=== PATIENT | female | born 1975 | race Caucasian/White ===

== ENCOUNTER 2016-10-15 13:50 | Emergency (ER) | payer SELFPAY ==
[~2016-10-15] VITALS: Ht 157.5 cm; Wt 90.7 kg
[~2016-10-15 13:50] MED LIST: AZIT250T PO
[2016-10-15] MEDS ORDERED: IV NORMAL SALINE 1000ML BAG 1,000 ML IV ONE (14:45)
[2016-10-15 14:51] LABS: BILIRUBIN,URINE NEGATIVE (NEG); GLUCOSE,URINE 500 mg/dL (NEG); NITRITE,URINE NEGATIVE (NEG); PH,URINE 5.5; PROTEIN,URINE >=300 mg/dL (NEG-TRACE); UROBILINOGEN,URINE 0.2 mg/dL (0.2 mg/dL)
[2016-10-15 14:56] LABS: BARBITURATES NEG (NEG); BENZODIAZEPINES NEG (NEG); CANNABINOIDS NEG (NEG); COCAINE NEG (NEG); ETHANOL, URINE NEG (NEG); METHADONE NEG (NEG); OPIATES NEG (NEG); PHENCYCLIDINE NEG (NEG)
[2016-10-15 15:02] LABS: BACTERIA,URINE FEW /HPF (0-FEW); RBC,URINE 0 /HPF (0-2); SQUAMOUS EPITHELIAL CELL,UR MOD /LPF
[2016-10-15 15:04] LABS: BASO # 0.1 x10^3/uL (0.0-0.2); BASO % 1 % (0-3); EOS % 5 % (0-3); HEMATOCRIT 40.7 % (36.0-47.0); HEMOGLOBIN 13.3 g/dL (12.0-15.5); LYMPH # 1.7 x10^3/uL (1.0-4.8); LYMPH % 15 % (24-48); MEAN CORPUSCULAR HEMOGLOBIN 28 pg (25-35); MEAN CORPUSCULAR HGB CONC 33 g/dL (31-37); MEAN CORPUSCULAR VOLUME 84 fL (79-100); MONO % 5 % (0-9); NEUT % 75 % (31-73); PLATELET COUNT 184 x10^3/uL (140-400); RED BLOOD COUNT 4.86 x10^6/uL (3.50-5.40); RED CELL DISTRIBUTION WIDTH 14.4 % (11.5-14.5); WHITE BLOOD COUNT 11.5 x10^3/uL (4.0-11.0)
[2016-10-15 15:16] LABS: CALCIUM 8.6 mg/dL (8.5-10.1); CREATININE 1.5 mg/dL (0.6-1.0); GFR 38.1; POTASSIUM 3.5 mmol/L (3.5-5.1)
[2016-10-15 15:21] LABS: ALBUMIN 3.1 g/dL (3.4-5.0); ALBUMIN/GLOBULIN RATIO 0.8 (1.0-1.7); TOTAL BILIRUBIN 0.3 mg/dL (0.2-1.0); TOTAL PROTEIN 6.9 g/dL (6.4-8.2)
--- NOTE | 2016-10-15 15:49 | EKG ---
[facility] [address] [place] [address] Test Date: 2016-10-15 Test Time: 15:34:24 Pat Name: NAVEEN AGRAWAL Department: Room: Gender: F Rn Neonatal: : 1975 Requested By: JULIA ALCALA Order Number: [id number] Reading MD: Measurements Intervals [place] Rate: 86 P: 34 MO: 166 QRS: 25 QRSD: 86 T: -179 QT: 372 QTc: 448 Interpretive Statements SINUS RHYTHM LVH WITH REPOLARIZATION ABNORMALITY ABNORMAL ECG RI6.01 No previous ECG available for comparison
--- NOTE | 2016-10-15 16:12 | ED.ADGEN ---
Past Medical History Past Medical History: Asthma, Diabetes-Type II, Hypertension, IBS, Seizure Past Surgical History: Tubal ligation, Other Additional Past Surgical Histo: bladder surgery Alcohol Use: Occasionally Drug Use: None Adult General Chief Complaint Chief Complaint: SEIZURE HPI HPI Patient is a 41 year old and, history of type 2 diabetes mellitus, hypertension , seizure disorder, irritable bowel syndrome, who presents to the emergency department after a reported seizure. Patient's is present at bedside, he states that he'll the patient had just finished eating at a restaurant, when they stopped to the patient could use the restroom and a [employer], he states the patient went in by herself will he was on the phone, he states that about 15 -20 minutes passed, and he went in after the patient, as he was entering the restaurant, the patient was exiting, and "fell into my arms". Patient is complaining of headache and right shoulder pain, stated that she had experienced a seizure while in the bathroom stall, striking her head and arm against the wall. She states she is experiencing a headache, and is feeling "very tired", and slow, different from her typical seizures. She states that she has seizures approximately every few weeks, more recently currently, and that her medication was adjusted at the [facility] where she follows last week, her Topamax was increased from 100 mg twice a day to 200 mg in the morning and 100 mg at night. She states she has been compliant with her medications. She denies any drugs, alcohol or cigarettes. Denies any other triggers, injuries, fever, chills, focal weakness numbness or tingling, vision changes or other aside from headache, soreness in the right shoulder and fatigue. Review of Systems Review of Systems Constitutional: Denies fever or chills. [] Eyes: Denies change in visual acuity. [] HENT: Denies nasal congestion or sore throat. [] Respiratory: Denies cough or shortness of breath. [] Cardiovascular: Denies chest pain or edema. [] GI: Denies abdominal pain, nausea, vomiting, bloody stools or diarrhea. [] : Denies dysuria. [] Musculoskeletal: Denies back pain or joint pain. [] Integument: Denies rash. [] Neurologic: Denies headache, focal weakness or sensory changes. [] Endocrine: Denies polyuria or polydipsia. [] Lymphatic: Denies swollen glands. [] Psychiatric: Denies depression or anxiety. [] Current Medications Current Medications Current Medications Medications (Trade) Dose Ordered Sig/Live Start Time Stop Time Status Last Admin Dose Admin Acetaminophen (Tylenol) 1,000 mg 1X ONCE 10/15/16 17:00 10/15/16 17:01 DC 10/15/16 17:26 1,000 MG Ondansetron HCl (Zofran) 4 mg STK-MED ONCE 10/15/16 16:13 10/15/16 16:14 DC Sodium Chloride (Iv Sodium Chloride 0.9% 1000ml Bag) 1,000 ml @ 1,000 mls/hr 1X ONCE 10/15/16 14:45 10/15/16 15:44 DC 10/15/16 14:51 1,000 MLS/HR Topiramate (Topamax) 125 mg 1X ONCE 10/15/16 17:15 10/15/16 17:16 DC 10/15/16 17:26 125 MG Allergies Allergies Allergies Coded Allergies Type Severity Reaction Last Updated Verified LEOLA Inhibitors Allergy Severe swelling 10/15/16 Yes Penicillins Allergy Severe swelling, hives, throat closes 04/02/14 No trandolapril Allergy Severe anaphylaxis 04/02/14 No verapamil Allergy Severe anaphylaxis 04/02/14 No lamotrigine Allergy Intermediate 10/15/16 No codeine Adverse Reaction Unknown severe headache 04/02/14 No Physical Exam Physical Exam Constitutional: Well developed, well nourished, no acute distress, non-toxic appearance. [] HENT: Normocephalic, atraumatic, bilateral external ears normal, oropharynx moist, no oral exudates, nose normal. [] Eyes: PERRLA, EOMI, conjunctiva normal, no discharge. [] Neck: Normal range of motion, no tenderness, supple, no stridor. [] Cardiovascular:Heart rate regular rhythm, no murmur [] Lungs & Thorax: Bilateral breath sounds clear to auscultation [] Abdomen: Bowel sounds normal, soft, no tenderness, no masses, no pulsatile masses. [] Skin: Warm, dry, no erythema, no rash. [] Back: No tenderness, no CVA tenderness. [] Extremities: No tenderness, no cyanosis, no clubbing, ROM intact, no edema. [] Neurologic: Alert and oriented X 3, normal motor function, normal sensory function, no focal deficits noted. [] Psychologic: Affect normal, judgement normal, mood normal. [] Current Patient Data Vital Signs Vital Signs Date Time Temp Pulse Resp B/P Pulse Ox O2 Delivery O2 Flow Rate FiO2 10/15/16 17:46 84 18 158/73 98 Room Air 10/15/16 13:52 98.4 98.4 Lab Values Laboratory Tests Test 10/15/16 14:10 10/15/16 14:45 10/15/16 17:39 10/15/16 17:40 Urine Collection Type Unknown Urine Color Yellow Urine Clarity Clear Urine pH 5.5 Urine Specific [place] 1.025 Urine Protein >=300mg/dL (NEG-TRACE) Urine Glucose (UA) 500mg/dL (NEG) Urine Ketones (Stick) Negativemg/dL (NEG) Urine Blood Negative (NEG) Urine Nitrite Negative (NEG) Urine Bilirubin Negative (NEG) Urine Urobilinogen Dipstick 0.2mg/dL (0.2 mg/dL) Urine Leukocyte Esterase Negative (NEG) Urine RBC 0/HPF (0-2) Urine WBC 1-4/HPF (0-4) Urine Squamous Epithelial Cells Mod/LPF Urine Bacteria Few/HPF (0-FEW) Urine Mucus Slight/LPF Urine Opiates Screen Neg (NEG) Urine Methadone Screen Neg (NEG) Urine Barbiturates Neg (NEG) Urine Phencyclidine Screen Neg (NEG) Urine Amphetamine/Methamphetamine Neg (NEG) Urine Benzodiazepines Screen Neg (NEG) Urine Cocaine Screen Neg (NEG) Urine Cannabinoids Screen Neg (NEG) Urine Ethyl Alcohol Neg (NEG) White Blood Count 11.5x10^3/uL (4.0-11.0) H Red Blood Count 4.86x10^6/uL (3.50-5.40) Hemoglobin 13.3g/dL (12.0-15.5) Hematocrit 40.7% (36.0-47.0) Mean Corpuscular Volume 84fL (79-100) Mean Corpuscular Hemoglobin 28pg (25-35) Mean Corpuscular Hemoglobin Concent 33g/dL (31-37) Red Cell Distribution Width 14.4% (11.5-14.5) Platelet Count 184x10^3/uL (140-400) Neutrophils (%) (Auto) 75% (31-73) H Lymphocytes (%) (Auto) 15% (24-48) L Monocytes (%) (Auto) 5% (0-9) Eosinophils (%) (Auto) 5% (0-3) H Basophils (%) (Auto) 1% (0-3) Neutrophils # (Auto) 8.6x10^3uL (1.8-7.7) H Lymphocytes # (Auto) 1.7x10^3/uL (1.0-4.8) Monocytes # (Auto) 0.6x10^3/uL (0.0-1.1) Eosinophils # (Auto) 0.6x10^3/uL (0.0-0.7) Basophils # (Auto) 0.1x10^3/uL (0.0-0.2) Sodium Level 142mmol/L (136-145) 143mmol/L (136-145) Potassium Level 3.5mmol/L (3.5-5.1) 3.7mmol/L (3.5-5.1) Chloride Level 106mmol/L (98-107) 106mmol/L (98-107) Carbon Dioxide Level 24mmol/L (21-32) 19mmol/L (21-32) L Anion Gap 12 (6-14) 18 (6-14) H Blood Urea Nitrogen 24mg/dL (7-20) H 24mg/dL (7-20) H Creatinine 1.5mg/dL (0.6-1.0) H 1.3mg/dL (0.6-1.0) H Estimated GFR (Cockcroft-Gault) 38.1 44.9 BUN/Creatinine Ratio 16 (6-20) Glucose Level 249mg/dL (70-99) H 261mg/dL (70-99) H Lactic Acid Level 2.7mmol/L (0.4-2.0) H 2.0mmol/L (0.4-2.0) Calcium Level 8.6mg/dL (8.5-10.1) 8.3mg/dL (8.5-10.1) L Total Bilirubin 0.3mg/dL (0.2-1.0) Aspartate Amino Transferase (AST) 13U/L (15-37) L Alanine Aminotransferase (ALT) 21U/L (14-59) Alkaline Phosphatase 68U/L (46-116) Total Protein 6.9g/dL (6.4-8.2) Albumin 3.1g/dL (3.4-5.0) L Albumin/Globulin Ratio 0.8 (1.0-1.7) L Laboratory Tests 10/15/16 14:45 Laboratory Tests 10/15/16 14:45 10/15/16 17:39 EKG EKG EC: Sinus rhythm, heart rate 86 bpm, left ventricular hypertrophy with hyperpolarization noted, QTc of 448, NC of 166, QRS of 86, no ST elevations or depressions, abnormal ECG, does not meet STEMI criteria. As interpreted by me. [ ] Radiology/Procedures Radiology/Procedures [] [address] [id number] IMAGING REPORT Signed PATIENT: NAVEEN AGRAWAL ACCOUNT: [id number] : 1975 LOCATION: ER AGE: 41 SEX: F EXAM STATUS: REG ER ORD. PHYSICIAN: JULIA ALCALA DO REASON: ANDREW/SZ PROCEDURE: CT HEAD WO CONTRAST CT scan of the head without contrast 10/15/2016 Clinical history: Headache and seizures. Technique: Unenhanced, contiguous, 5 mm axial sections were obtained through the head. One or more of the following individualized dose reduction techniques were utilized for this study: 1. Automated exposure control. 2. Adjustment of the mA and/or kV according to patient size. 3. Use of iterative reconstruction technique. Findings: Comparison study is dated 12/22/2012. The ventricles and sulci are within normal limits in size and configuration. No area of abnormal attenuation is involving the brain parenchyma. No extra-axial fluid collection is seen. No skull fracture is noted. Impression: Negative study. DICTATED and SIGNED BY: DARON CARR MD DATE: 10/15/16 [id number] CC: JULIA ALCALA DO; NO PCP ~ Impressions: [address] [phone] IMAGING REPORT Signed PATIENT: NAVEEN AGRAWAL ACCOUNT: [id number] : 1975 LOCATION: ER AGE: 41 SEX: F EXAM STATUS: REG ER ORD. PHYSICIAN: JULIA ALCALA DO REASON: Pain/fall PROCEDURE: SHOULDER 2+V RIGHT Three-view right shoulder radiographs 10/15/2016 Clinical history: Fall with injury to the right shoulder. AP internal and external rotation and transscapular digital radiographs of the right shoulder were obtained. No acute fracture or dislocation of the right shoulder is seen. A healed fracture of the mid/distal diaphysis of the right clavicle is noted. No significant degenerative changes are seen. Impression: No acute fracture or dislocation of the right shoulder is seen. DICTATED and SIGNED BY: DARON CARR MD DATE: 10/15/161645 CC: JULIA ALCALA DO; NO PCP ~ [facility] [address] [place], [place] [id number] IMAGING REPORT Signed PATIENT: NAVEEN AGRAWAL ACCOUNT: [id number] : 1975 LOCATION: ER AGE: 41 SEX: F EXAM STATUS: REG ER ORD. PHYSICIAN: JULIA ALCALA DO REASON: Pain/fall PROCEDURE: CHEST PA & LATERAL PA and lateral chest radiographs 10/15/2016 Clinical history: Fall with dizziness. PA and lateral digital radiographs of the chest were obtained. Comparison study dated 07/02/2016. The cardiac silhouette is normal in size. The thoracic aorta is minimally tortuous. No acute pulmonary infiltrate is seen. No pleural effusion or pneumothorax is noted. Mild degenerative changes are seen involving the thoracic spine. The osseous structures are grossly intact. Impression: No acute abnormality is seen. DICTATED and SIGNED BY: DARON CARR MD DATE: 10/15/161647 CC: JULIA ALCALA DO; NO PCP ~ Course & Med Decision Making Course & Med Decision Making Pertinent Labs and Imaging studies reviewed. (See chart for details) Due to patient's complaint of headache, fatigue, and concern for waxing waning mentation per her 's report, with report of head injury from patient, CT of the head obtained. No concerning findings identified. Patient also received x -rays of the shoulder and chest, no evidence of acute injury there either. Initial lactic was elevated at 2.7, patient resides fluids in the ED. Repeat normalized to 2.0, patient without further seizures in the ED. Patient noted to have mild is a mild dehydration, with an elevated blood urea nitrogen, and creatinine of 1.5. Patient received IV hydration the ED, repeat creatinine 1.3. I discussed findings as above, the patient's recurrent seizures despite adjustment of her medication with Dr. Telles of neurology. patient is not currently have insurance, as her is currently out of work and previously was provided reassurance for both them, patient does have follow-up with the [facility]. As patient has mildly elevated creatinine, she recommends emphasizing the importance of good hydration with the patient, due to cost, can increase the patient's Topamax to 200 mg in the a.m., and 125 mg in the afternoon, certainly can add Keppra to the patient's current Topamax regimen. Due to cost, after discussion with patient and at bedside, they opted to increase the patient's Topamax 225 mg once daily along with 200 and the a.m., patient is given a first dose in the ED. As stated her creatinine did improve IV hydration, and importance of hydration was discussed. We also discussed concerning symptoms that would prompt return to the ED, and resources for the patient and her family regarding obtaining insurance in the importance of follow-up. Patient and at bedside voiced understanding and agreement. Patient received acetaminophen in the ED, ambulating without difficulty, discharged home in stable condition with her , with prescription for 25 mg of Topamax to be added as stated, and plan for follow-up as above. Dragon Disclaimer Dragon Disclaimer This electronic medical record was generated, in whole or in part, using a voice recognition dictation system. Departure Impression: Primary Impression: Seizure Disposition: 01 HOME, SELF-CARE Condition: IMPROVED Scripts Topiramate (Topamax)25 Mg Oxqllk65 Mg PO DAILY #30 TAB Please take one 25 mg tablet with your previously prescribed 100 mg dose of Topamax, for a total of 125 mg of Topamax in the evening. Prov:JULIA ALCALA DO 10/15/16 JULIA ALCALA DO Oct 15, 2016 16:12
[2016-10-15] MEDS ORDERED: ONDANSETRON PF 4 MG/2 ML VIAL. ONE (16:13)
[2016-10-15] MEDS ORDERED: ONDANSETRON PF 4 MG/2 ML VIAL. IV ONE (16:15)
--- NOTE | 2016-10-15 16:40 | RAD ---
CT scan of the head without contrast 10/15/2016 Clinical history: Headache and seizures. Technique: Unenhanced, contiguous, 5 mm axial sections were obtained through the head. One or more of the following individualized dose reduction techniques were utilized for this study: 1. Automated exposure control. 2. Adjustment of the mA and/or kV according to patient size. 3. Use of iterative reconstruction technique. Findings: Comparison study is dated 12/22/2012. The ventricles and sulci are within normal limits in size and configuration. No area of abnormal attenuation is involving the brain parenchyma. No extra-axial fluid collection is seen. No skull fracture is noted. Impression: Negative study.
--- NOTE | 2016-10-15 16:50 | RAD ---
Three-view right shoulder radiographs 10/15/2016 Clinical history: Fall with injury to the right shoulder. AP internal and external rotation and transscapular digital radiographs of the right shoulder were obtained. No acute fracture or dislocation of the right shoulder is seen. A healed fracture of the mid/distal diaphysis of the right clavicle is noted. No significant degenerative changes are seen. Impression: No acute fracture or dislocation of the right shoulder is seen.
--- NOTE | 2016-10-15 16:51 | RAD ---
PA and lateral chest radiographs 10/15/2016 Clinical history: Fall with dizziness. PA and lateral digital radiographs of the chest were obtained. Comparison study dated 07/02/2016. The cardiac silhouette is normal in size. The thoracic aorta is minimally tortuous. No acute pulmonary infiltrate is seen. No pleural effusion or pneumothorax is noted. Mild degenerative changes are seen involving the thoracic spine. The osseous structures are grossly intact. Impression: No acute abnormality is seen.
[2016-10-15] MEDS ORDERED: ACETAMINOPHEN 500 MG TABLET PO ONE (17:00)
[2016-10-15] MEDS ORDERED: TOPIRAMATE 25 MG TABLET. PO ONE (17:15)
[2016-10-15 17:46] VITALS: BP 158/73
[2016-10-15 18:07] LABS: CALCIUM 8.3 mg/dL (8.5-10.1); CREATININE 1.3 mg/dL (0.6-1.0); GFR 44.9; POTASSIUM 3.7 mmol/L (3.5-5.1)
[2016-10-15] MEDS ORDERED: TOPI25TA32 PO (19:08)
== END 2016-10-15 19:14 | disposition home or self-care (01) ==
LOC: ER 13:50
DX: G40.909 Epilepsy, unspecified, not intractable, without status epilepticus (principal); E11.9 Type 2 diabetes mellitus without complications; I10 Essential (primary) hypertension; J45.909 Unspecified asthma, uncomplicated; K58.9 Irritable bowel syndrome, unspecified; Z98.51 Tubal ligation status; Z88.0 Allergy status to penicillin; Z88.5 Allergy status to narcotic agent; Z88.8 Allergy status to other drugs, medicaments and biological substances
CPT/HCPCS: 36415; 70450; 71020; 73030; 80048; 80053; 80305; 81001; 83605; 85027; 93005; 96361; 96374; 99285; J2405; J7030; G0481

== ENCOUNTER 2016-11-16 17:17 | Emergency (ER) | payer SELFPAY ==
[~2016-11-16] VITALS: Ht 157.5 cm; Wt 86.2 kg
[~2016-11-16 17:17] MED LIST changes: +TOPI25TA32 PO
[2016-11-16] MEDS ORDERED: IV NORMAL SALINE 1000ML BAG 1,000 ML IV SCH (17:33)
[2016-11-16] MEDS ORDERED: methylPREDNISolone SOD SUCC PF 125 MG/2 ML VIAL. IV ONE (17:45)
[2016-11-16] MEDS ORDERED: FAMOTIDINE 20 MG/2 ML VIAL IVP ONE (17:45)
[2016-11-16] MEDS ORDERED: EPINEPHrine 1 MG/ML VIAL IM ONE (17:45)
[2016-11-16] MEDS ORDERED: diphenhydrAMINE 50 MG/ML VIAL IV ONE (17:45)
[2016-11-16 19:30] VITALS: BP 196/81
[2016-11-16] MEDS ORDERED: DIPH25CA58 PO (19:41)
[2016-11-16] MEDS ORDERED: FAMO-63 PO (19:41)
[2016-11-16] MEDS ORDERED: PRED50TA PO (19:41)
--- NOTE | 2016-11-16 19:42 | PHYS DOC ---
Past Medical History Past Medical History: Asthma, Diabetes-Type II, Hypertension, IBS, Seizure Past Surgical History: Tubal ligation, Other Additional Past Surgical Histo: bladder surgery Alcohol Use: Occasionally Drug Use: None Adult General Chief Complaint Chief Complaint: ALLERGIC REACTION HPI HPI Patient is a 41 year old female who presents with allergic reaction. The patient states she ate fruit loops cereal around 12:00 noon today, had immediate onset of red itchy raised rash to face, torso, extremities. She took 3 tablets of benadryl but states the rash has spread. She now complains of tightness in her throat as well as sensation of "puffy" tongue. She denies shortness of breath, vomiting, diarrhea. She has history of hypertension, denies headache, chest pain, shortness of breath, edema, extremity numbness/ weakness. She has medication allergy but no known food allergy. Denies any new medications or exposures to new soaps, lotions, detergents. She hasn't eaten this type of cereal for years. Review of Systems Review of Systems Constitutional: Denies fever or chills Eyes: Denies change in visual acuity HENT: Denies nasal congestion or sore throat, reports tongue swelling & throat tightness Respiratory: Denies cough or shortness of breath Cardiovascular: Denies chest pain GI: Denies abdominal pain, nausea, vomiting, or diarrhea Musculoskeletal: Denies back pain or joint pain Integument: Reports rash Neurologic: Denies headache Current Medications Current Medications Current Medications Medications (Trade) Dose Ordered Sig/Live Start Time Stop Time Status Last Admin Dose Admin Diphenhydramine HCl (Benadryl) 25 mg 1X ONCE 11/16/16 17:45 11/16/16 17:46 DC 11/16/16 17:55 25 MG Epinephrine HCl (Adrenalin) 0.3 mg 1X ONCE 11/16/16 17:45 11/16/16 17:46 DC 11/16/16 18:00 0.3 MG Famotidine (Pepcid) 20 mg 1X ONCE 11/16/16 17:45 11/16/16 17:46 DC 11/16/16 17:55 20 MG Methylprednisolone Sodium Succinate (SOLU-Medrol 125MG VIAL) 125 mg 1X ONCE 11/16/16 17:45 11/16/16 17:46 DC 11/16/16 17:50 125 MG Sodium Chloride 1,000 ml @ 1,000 mls/hr Q1H 11/16/16 17:33 11/16/16 18:32 DC 11/16/16 18:03 1,000 MLS/HR Allergies Allergies Allergies Coded Allergies Type Severity Reaction Last Updated Verified LEOLA Inhibitors Allergy Severe swelling 10/15/16 Yes Penicillins Allergy Severe swelling, hives, throat closes 04/02/14 No trandolapril Allergy Severe anaphylaxis 04/02/14 No verapamil Allergy Severe anaphylaxis 04/02/14 No lamotrigine Allergy Intermediate 10/15/16 No codeine Adverse Reaction Unknown severe headache 04/02/14 No Physical Exam Physical Exam Constitutional: obese, no acute distress, non-toxic appearance. HENT: Normocephalic, atraumatic, bilateral external ears normal, oropharynx moist, nose normal. no obvious face/tongue/lip swelling, airway patent Eyes: conjunctiva normal, no discharge. Neck: supple, no stridor. Cardiovascular: tachycardic, regular, no murmurs, no edema. Lungs & Thorax: LCTAB, no wheezing, no respiratory distress. Abdomen: soft, nontender, nondistended. Skin: urticaria to bilateral forearms, chest wall, abdomen, back. erythematous macular rash to face & thighs. Back: No tenderness. Extremities: No deformity Neurologic: Alert and oriented X 3, no focal deficits noted. Psychologic: Affect normal, judgement normal, mood normal. Current Patient Data Vital Signs Vital Signs Date Time Temp Pulse Resp B/P (MAP) Pulse Ox O2 Delivery O2 Flow Rate FiO2 11/16/16 19:30 90 20 196/81 (119) 99 Room Air 11/16/16 17:30 98.3 98.3 EKG EKG [] Radiology/Procedures Radiology/Procedures [] Course & Med Decision Making Course & Med Decision Making Pertinent Labs and Imaging studies reviewed. (See chart for details) The patient presents with allergic reaction, likely to some ingredient in fruit loops. She had already taken benadryl with progression of symptoms, & now complaining of potential airway symptoms. Gave epi injection followed by IV solumedrol, benadryl, pepcid, IVF. She was observed for 2 hours. She had improvement & essentially resolution of her symptoms, no return of urticaria. She was resting comfortably at time of reassessment with some improvement of her blood pressure. She was comfortable with discharge home. Discussed epi pen as we are not certain which specific component of hte breakfast cereal caused her symptoms, but she says she can't afford it & doesn't want a prescription. Gave prednisone, benadryl, pepcid x 4 additional days. Avoid fruit loops & food dyes if possible. Follow up with PCP in 2-3 days, have BP rechecked at that time. Come back for face/tongue/lip swelling, shortness of breath, any otherwise worsening condition. Discharged home in stable & improved condition. [] Dragon Disclaimer Dragon Disclaimer This electronic medical record was generated, in whole or in part, using a voice recognition dictation system. Departure Departure Impression: Primary Impression: Allergic reaction Additional Impression: Essential hypertension Disposition: 01 HOME, SELF-CARE Condition: STABLE Referrals: NO PCP Patient Instructions: Anaphylactic Reaction, [id number] Additional Instructions: You were seen in the emergency department today for allergic reaction, likely to some ingredient in fruit loops. Avoid eating this food. Take the prescribed medications for the next 4 days. Drink plenty of fluids to stay hydrated. Follow -up with a primary care doctor in 2-3 days. Be aware that prednisone may cause high blood sugars. Return to the emergency department for face/tongue/lip swelling, difficult to breathing, any otherwise worsening condition. Scripts Famotidine (PEPCID) 20 Mg Tablet 20 MG PO HS for 4 Days, #4 TAB Prov: TOÑITO ROGERS MD 11/16/16 Diphenhydramine Hcl (BENADRYL) 25 Mg Capsule 25 MG PO Q6HRS for 4 Days, #16 CAP Prov: TOÑITO ROGERS MD 11/16/16 Prednisone (PREDNISONE) 50 Mg Tablet 1 TAB PO DAILY, #4 TAB Prov: TOÑITO ROGERS MD 11/16/16 Problem Qualifiers TOÑITO ROGERS MD November 16, 2016 19:41
== END 2016-11-16 19:55 | disposition home or self-care (01) ==
LOC: ER 18:22
DX: T78.1XXA Other adverse food reactions, not elsewhere classified, initial encounter (principal); L50.9 Urticaria, unspecified; I10 Essential (primary) hypertension; R00.0 Tachycardia, unspecified; E66.9 Obesity, unspecified; J45.909 Unspecified asthma, uncomplicated; E11.9 Type 2 diabetes mellitus without complications; K58.9 Irritable bowel syndrome, unspecified; Z68.34 Body mass index [BMI] 34.0-34.9, adult; Z88.5 Allergy status to narcotic agent; Z88.0 Allergy status to penicillin; Z88.8 Allergy status to other drugs, medicaments and biological substances; X58.XXXA Exposure to other specified factors, initial encounter
CPT/HCPCS: 96361; 96372; 96374; 96375; 99284; J0171; J1200; J2930; J7030; S0028

== ENCOUNTER 2016-11-19 01:56 | Emergency (ER) | payer SELFPAY ==
[~2016-11-19] VITALS: Ht 157.5 cm; Wt 86.2 kg
[~2016-11-19 01:56] MED LIST changes: +DIPH25CA58 PO; +FAMO-63 PO; +PRED50TA PO
[2016-11-19] MEDS ORDERED: ONDANSETRON PF 4 MG/2 ML VIAL. IV ONE (04:00)
[2016-11-19] MEDS ORDERED: methylPREDNISolone SOD SUCC PF 125 MG/2 ML VIAL. IV ONE (04:00)
[2016-11-19] MEDS ORDERED: diphenhydrAMINE 50 MG/ML VIAL IVP ONE (04:00)
[2016-11-19] MEDS ORDERED: FAMOTIDINE 20 MG/2 ML VIAL IVP ONE (04:00)
[2016-11-19] MEDS ORDERED: EPIN0.3A4 IJ (04:48)
[2016-11-19] MEDS ORDERED: PRED50TA PO (04:48)
[2016-11-19] MEDS ORDERED: FAMO-63 PO (04:48)
[2016-11-19] MEDS ORDERED: DIPH25CA58 PO (04:48)
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
[2016-11-19 04:53] VITALS: BP 142/66
== END 2016-11-19 05:05 | disposition home or self-care (01) ==
LOC: ER 01:56
DX: T78.40XA Allergy, unspecified, initial encounter (principal); R11.2 Nausea with vomiting, unspecified; R19.7 Diarrhea, unspecified; R10.9 Unspecified abdominal pain; E11.9 Type 2 diabetes mellitus without complications; I10 Essential (primary) hypertension; Z98.51 Tubal ligation status; G40.909 Epilepsy, unspecified, not intractable, without status epilepticus; Z88.0 Allergy status to penicillin; Z88.5 Allergy status to narcotic agent; Z88.8 Allergy status to other drugs, medicaments and biological substances
CPT/HCPCS: 96374; 96375; 99284; J1200; J2405; J2930; S0028

== ENCOUNTER 2018-12-25 01:39 | Inpatient (IN) | payer OTHER ==
[~2018-12-25] VITALS: Ht 157.5 cm; Wt 96.6 kg
[~2018-12-25 01:39] MED LIST changes: +EPIPEN 2-P0.3 MG/0.3 IJ; -TOPI25TA32 PO; +TOPI25TA52 PO
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
[2018-12-25] MEDS ORDERED: ASPIRIN CHEWABLE 81 MG TABLET. PO ONE (02:15)
[2018-12-25] MEDS ORDERED: ONDANSETRON ODT 4 MG TAB.RAPDIS. PO ONE (02:15)
[2018-12-25 02:23] LABS: BASO # 0.1 x10^3/uL (0.0-0.2); BASO % 1 % (0-3); EOS # 0.5 x10^3/uL (0.0-0.7); EOS % 5 % (0-3); HEMATOCRIT 37.5 % (36.0-47.0); LYMPH # 2.1 x10^3/uL (1.0-4.8); LYMPH % 21 % (24-48); MEAN CORPUSCULAR HEMOGLOBIN 30 pg (25-35); MEAN CORPUSCULAR HGB CONC 35 g/dL (31-37); MEAN CORPUSCULAR VOLUME 85 fL (79-100); MONO # 0.7 x10^3/uL (0.0-1.1); MONO % 7 % (0-9); NEUT # 6.3 x10^3uL (1.8-7.7); NEUT % 65 % (31-73); PLATELET COUNT 185 x10^3/uL (140-400); RED CELL DISTRIBUTION WIDTH 13.9 % (11.5-14.5); WHITE BLOOD COUNT 9.6 x10^3/uL (4.0-11.0)
[2018-12-25 02:32] LABS: CALCIUM 8.8 mg/dL (8.5-10.1); CREATININE 1.5 mg/dL (0.6-1.0); GFR 37.7; POTASSIUM 3.7 mmol/L (3.5-5.1)
[2018-12-25 02:38] LABS: ALBUMIN 3.3 g/dL (3.4-5.0); ALBUMIN/GLOBULIN RATIO 0.9 (1.0-1.7); TOTAL BILIRUBIN 0.4 mg/dL (0.2-1.0)
[2018-12-25] MEDS ORDERED: fentaNYL PF VIAL 100 MCG/2 ML VIAL IV PRN (02:45)
[2018-12-25] MEDS ORDERED: ACETAMINOPHEN 325 MG TABLET. PO PRN (02:45)
[2018-12-25] MEDS ORDERED: NITROGLYCERIN SUBLINGUAL 0.4 MG BOTTLE OF 25. SL PRN (02:45)
[2018-12-25] MEDS ORDERED: ONDANSETRON PF 4 MG/2 ML VIAL. IV PRN ×2 (02:45→09:30)
[2018-12-25] MEDS ORDERED: DEXTROSE 50% 25 GM / 50ML DISP.SYRIN. IV PRN ×2 (02:45→09:30)
--- NOTE | 2018-12-25 03:41 | RAD ---
CHEST AP ONLY Clinical Indication: Chest pain Comparison: Two-view chest October 15, 2016. Findings: Apical lordotic positioning. The cardiomediastinal silhouette is normal. Lungs are clear. There is no pneumothorax. No pleural effusion is appreciated. No acute bone abnormality. IMPRESSION: No acute cardiopulmonary process. Electronically signed by: Chris Alonzo MD (12/25/2018 3:38 AM) [facility]
[2018-12-25 04:45] VITALS: BP 144/77
[2018-12-25] MEDS ORDERED: LEVO25TA4 PO (05:37)
[2018-12-25] MEDS ORDERED: INSU100I13 SQ (05:37)
[2018-12-25] MEDS ORDERED: GABA600T7 PO (05:37)
[2018-12-25] MEDS ORDERED: LOSA100T14 PO (05:37)
[2018-12-25] MEDS ORDERED: CLON0.1T PO (05:37)
[2018-12-25] MEDS ORDERED: ATOR10TA60 PO (05:37)
[2018-12-25] MEDS ORDERED: HYDR-2867 PO (05:37)
[2018-12-25] MEDS ORDERED: INSU100V SQ (05:37)
[2018-12-25] MEDS ORDERED: HYDR50TA6 PO (05:37)
[2018-12-25 07:00] VITALS: BP 119/55
[2018-12-25] MEDS ORDERED: INSULIN LISPRO 300 UNITS/3 ML INSULN.PEN. SQ SCH ×3 (08:00→12:00)
[2018-12-25 08:40] LABS: CHOLESTEROL 123 mg/dL (0-200); HDLC 18 mg/dL (40-60); TRIGLYCERIDES 521 mg/dL (0-150)
[2018-12-25 08:42] LABS: CHOLESTEROL/HDL RATIO 6.8
[2018-12-25] MEDS ORDERED: cloNIDine HCL 0.1 MG TABLET PO PRN (09:30)
--- NOTE | 2018-12-25 09:39 | EKG ---
[facility] [address] [place] [address] Test Date: 2018-12-25 Test Time: 01:45:51 Pat Name: NAVEEN AGRAWAL Department: Room: 254 1 Gender: F Hand Potter: : 1975 Requested By: EZEQUIEL LE Order Number: [id number] Reading MD: Armando Guthrie MD Measurements Intervals [place] Rate: 80 P: -33 DE: 156 QRS: 9 QRSD: 84 T: 148 QT: 384 QTc: 446 Interpretive Statements SINUS RHYTHM LVH PATTERN Electronically Signed On 12-25-2018 16:47:40 CDT by Armando Guthrie MD
[2018-12-25] MEDS ORDERED: LEVOTHYROXINE 25 MCG TABLET. PO SCH (10:00)
[2018-12-25] MEDS ORDERED: hydroCHLOROthiazide 25 MG TABLET PO SCH (10:00)
[2018-12-25] MEDS ORDERED: GABAPENTIN 300 MG CAPSULE. PO SCH (10:00)
[2018-12-25] MEDS ORDERED: LOSARTAN POTASSIUM 50 MG TABLET. PO SCH (10:00)
[2018-12-25] MEDS: hydrALAZINE 10 MG TABLET PO SCH ×2 (10:00→13:57)
--- NOTE | 2018-12-25 10:45 | PDOC1 ---
History and Physical Date of Admission Date of Admission DATE: 12/25/18 TIME: 10:40 Identification/Chief Complaint Chief Complaint Chest pain, right sided Source Source: Caregiver, Chart review, Patient History of Present Illness History of Present Illness 43-year-old white female, obese BMI 39, chest pain right-sided, intermittent lasted one and half hours. Noncardiac based on her clinical history. No identifiable precip or alleviating factor. No personal history of CAD, no premature history of CAD in the family. Labs and EKG reassuring. No diaphoresis but she claims some dizzy and SOA during the CP. TSH is 3. Also diabetic and hypertensive on medications. Discussed with cardiology, echocardiogram, okay for diet. If Echo okay, could go home later Past Medical History Cardiovascular: HTN, Hyperlipidemia Psych: Anxiety Endocrine: Diabetes Past Surgical History Past Surgical History: No pertinent history Family History Family History: Hypertension Social History Smoke: No ALCOHOL: occassional Drugs: None Current Medications Current Medications Current Medications Aspirin (Children'S Aspirin) 324 mg 1X ONCE PO Last administered on 12/25/18at 02:19; Start 12/25/18 at 02:15; Stop 12/25/18 at 02:16; Status DC Ondansetron HCl (Zofran Odt) 4 mg 1X ONCE PO Last administered on 12/25/18at 02:19; Start 12/25/18 at 02:15; Stop 12/25/18 at 02:16; Status DC Ondansetron HCl (Zofran) 4 mg PRN Q8HRS PRN IV NAUSEA/VOMITING 1ST CHOICE; Start 12/25/18 at 02:45; Stop 12/25/18 at 09:19; Status DC Fentanyl Citrate (Fentanyl 2ml Vial) 50 mcg PRN Q4HRS PRN IV SEVERE PAIN 7-10; Start 12/25/18 at 02:45; Stop 12/26/18 at 02:44 Acetaminophen (Tylenol) 650 mg PRN Q4HRS PRN PO FEVER; Start 12/25/18 at 02:45; Stop 12/26/18 at 02:44 Nitroglycerin (Nitrostat) 0.4 mg PRN Q5MIN PRN SL CHEST PAIN; Start 12/25/18 at 02:45; Stop 12/26/18 at 02:44 Insulin Human Lispro (HumaLOG) 0-7 UNITS TIDWMEALS SQ ; Start 12/25/18 at 08:00; Stop 12/25/18 at 09:19; Status DC Dextrose (Dextrose 50%-Water Syringe) 12.5 gm PRN Q15MIN PRN IV SEE COMMENTS; Start 12/25/18 at 02:45; Stop 12/25/18 at 09:21; Status DC Ondansetron HCl (Zofran) 4 mg PRN Q6HRS PRN IV NAUSEA/VOMITING 1ST CHOICE; Start 12/25/18 at 09:30 Insulin Human Lispro (HumaLOG) 0-9 UNITS TIDWMEALS SQ ; Start 12/25/18 at 12:00 Dextrose (Dextrose 50%-Water Syringe) 12.5 gm PRN Q15MIN PRN IV SEE COMMENTS; Start 12/25/18 at 09:30 Atorvastatin Calcium (Lipitor) 10 mg QHS PO ; Start 12/25/18 at 21:00 Clonidine HCl (Catapres) 0.1 mg TID PRN PRN PO htn SEE COMMENT; Start 12/25/18 at 09:30 Insulin Glargine (Lantus) 40 units QHS SQ ; Start 12/25/18 at 21:00 Insulin Human Lispro (HumaLOG) 25 units TIDWMEALS SQ ; Start 12/25/18 at 12:00 Gabapentin (Neurontin) 900 mg TID PO ; Start 12/25/18 at 10:00 Hydralazine HCl (Apresoline) 10 mg TID PO ; Start 12/25/18 at 10:00 Hydrochlorothiazide (Hydrodiuril) 50 mg DAILY PO ; Start 12/25/18 at 10:00 Levothyroxine Sodium (Synthroid) 25 mcg DAILY06 PO ; Start 12/25/18 at 10:00 Losartan Potassium (Cozaar) 100 mg DAILY PO ; Start 12/25/18 at 10:00 Active Scripts Active Reported Lantus Solostar (Insulin Glargine,Hum.rec.anlog) 100 Unit/1 Ml Insuln.pen 40 Unit SQ QHS PRN Humalog (Insulin Lispro) 100 Unit/1 Ml Vial 25 Unit SQ TIDAC Gabapentin 600 Mg Tablet 900 Mg PO TID Atorvastatin Calcium 10 Mg Tablet 10 Mg PO DAILY Losartan Potassium 100 Mg Tablet 100 Mg PO DAILY Hydralazine Hcl 10 Mg Tablet 1 Tab PO TID Clonidine Hcl 0.1 Mg Tablet 0.1 Mg PO TID PRN PRN Hydrochlorothiazide Tablet (Hydrochlorothiazide) 50 Mg Tablet 50 Mg PO DAILY Levothyroxine Sodium 25 Mcg Tablet 25 Mcg PO DAILYAC Allergies Allergies: Coded Allergies: LEOLA Inhibitors (Verified Allergy, Severe, swelling, 10/15/16) Penicillins (Unverified Allergy, Severe, swelling, hives, throat closes, 04/02/14) trandolapril (Unverified Allergy, Severe, anaphylaxis, 04/02/14) verapamil (Unverified Allergy, Severe, anaphylaxis, 04/02/14) lamotrigine (Unverified Allergy, Intermediate, 10/15/16) codeine (Unverified Adverse Reaction, Intermediate, severe headache, 11/19/16) ROS Review of System As per history of present illness, the rest of ROS 14 point negative Physical Exam General: Alert, Oriented X3, Cooperative, No acute distress, Other (halitosis) HEENT: Atraumatic, PERRLA, EOMI Lungs: Clear to auscultation, Normal air movement Heart: S1S2, RRR, no thrills, no rubs, no gallops, no murmurs, jugular vein distention Cardiovascular: S1, S2 Breasts: Normal, Rt breast nml w/o mass, Lt breast nml w/o mass, Nipples normal Abdomen: Normal bowel sounds, Soft, No tenderness, No hepatosplenomegaly, No masses Rectal Exam: not examined PELVIC: Nml ext vulva Extremities: No clubbing, No cyanosis, No edema, Normal pulses, No tenderness/swelling Skin: No rashes, No breakdown, No significant lesion Neuro: Normal gait, Normal speech, Strength at 5/5 X4 ext, Normal tone, Sensation intact, Cranial nerves 3-12 NL, Reflexes 2+ Psych/Mental Status: Mental status NL, Mood NL Vitals Vitals Vital Signs Date Time Temp Pulse Resp B/P (MAP) Pulse Ox O2 Delivery O2 Flow Rate FiO2 12/25/18 07:00 97.5 66 16 119/55 (76) 96 Room Air 97.5 Labs Labs Laboratory Tests Test 12/25/18 02:10 12/25/18 05:54 12/25/18 07:32 12/25/18 09:38 White Blood Count 9.6 x10^3/uL (4.0-11.0) Red Blood Count 4.40 x10^6/uL (3.50-5.40) Hemoglobin 13.0 g/dL (12.0-15.5) Hematocrit 37.5 % (36.0-47.0) Mean Corpuscular Volume 85 fL (79-100) Mean Corpuscular Hemoglobin 30 pg (25-35) Mean Corpuscular Hemoglobin Concent 35 g/dL (31-37) Red Cell Distribution Width 13.9 % (11.5-14.5) Platelet Count 185 x10^3/uL (140-400) Neutrophils (%) (Auto) 65 % (31-73) Lymphocytes (%) (Auto) 21 % (24-48) Monocytes (%) (Auto) 7 % (0-9) Eosinophils (%) (Auto) 5 % (0-3) Basophils (%) (Auto) 1 % (0-3) Neutrophils # (Auto) 6.3 x10^3uL (1.8-7.7) Lymphocytes # (Auto) 2.1 x10^3/uL (1.0-4.8) Monocytes # (Auto) 0.7 x10^3/uL (0.0-1.1) Eosinophils # (Auto) 0.5 x10^3/uL (0.0-0.7) Basophils # (Auto) 0.1 x10^3/uL (0.0-0.2) D-Dimer (Cindy) 0.29 ug/mlFEU (0.00-0.50) Sodium Level 135 mmol/L (136-145) Potassium Level 3.7 mmol/L (3.5-5.1) Chloride Level 98 mmol/L (98-107) Carbon Dioxide Level 26 mmol/L (21-32) Anion Gap 11 (6-14) Blood Urea Nitrogen 33 mg/dL (7-20) Creatinine 1.5 mg/dL (0.6-1.0) Estimated GFR (Cockcroft-Gault) 37.7 BUN/Creatinine Ratio 22 (6-20) Glucose Level 268 mg/dL (70-99) Calcium Level 8.8 mg/dL (8.5-10.1) Total Bilirubin 0.4 mg/dL (0.2-1.0) Aspartate Amino Transf (AST/SGOT) 25 U/L (15-37) Alanine Aminotransferase (ALT/SGPT) 30 U/L (14-59) Alkaline Phosphatase 69 U/L (46-116) Troponin I Quantitative < 0.017 ng/mL (0.000-0.055) < 0.017 ng/mL (0.000-0.055) < 0.017 ng/mL (0.000-0.055) QB-Psl-S-Type Natriuretic Peptide 213 pg/mL (0-124) Total Protein 7.0 g/dL (6.4-8.2) Albumin 3.3 g/dL (3.4-5.0) Albumin/Globulin Ratio 0.9 (1.0-1.7) Triglycerides Level 521 mg/dL (0-150) Cholesterol Level 123 mg/dL (0-200) LDL Cholesterol, Calculated mg/dL (0-100) VLDL Cholesterol, Calculated mg/dL (0-40) Non-HDL Cholesterol Calculated 105 mg/dL (0-129) HDL Cholesterol 18 mg/dL (40-60) Cholesterol/HDL Ratio 6.8 Thyroid Stimulating Hormone (TSH) 3.853 uIU/mL (0.358-3.74) Glucose (Fingerstick) 322 mg/dL (70-99) Laboratory Tests Test 12/25/18 02:10 12/25/18 05:54 12/25/18 07:32 12/25/18 09:38 White Blood Count 9.6 x10^3/uL (4.0-11.0) Red Blood Count 4.40 x10^6/uL (3.50-5.40) Hemoglobin 13.0 g/dL (12.0-15.5) Hematocrit 37.5 % (36.0-47.0) Mean Corpuscular Volume 85 fL (79-100) Mean Corpuscular Hemoglobin 30 pg (25-35) Mean Corpuscular Hemoglobin Concent 35 g/dL (31-37) Red Cell Distribution Width 13.9 % (11.5-14.5) Platelet Count 185 x10^3/uL (140-400) Neutrophils (%) (Auto) 65 % (31-73) Lymphocytes (%) (Auto) 21 % (24-48) Monocytes (%) (Auto) 7 % (0-9) Eosinophils (%) (Auto) 5 % (0-3) Basophils (%) (Auto) 1 % (0-3) Neutrophils # (Auto) 6.3 x10^3uL (1.8-7.7) Lymphocytes # (Auto) 2.1 x10^3/uL (1.0-4.8) Monocytes # (Auto) 0.7 x10^3/uL (0.0-1.1) Eosinophils # (Auto) 0.5 x10^3/uL (0.0-0.7) Basophils # (Auto) 0.1 x10^3/uL (0.0-0.2) D-Dimer (Cindy) 0.29 ug/mlFEU (0.00-0.50) Sodium Level 135 mmol/L (136-145) Potassium Level 3.7 mmol/L (3.5-5.1) Chloride Level 98 mmol/L (98-107) Carbon Dioxide Level 26 mmol/L (21-32) Anion Gap 11 (6-14) Blood Urea Nitrogen 33 mg/dL (7-20) Creatinine 1.5 mg/dL (0.6-1.0) Estimated GFR (Cockcroft-Gault) 37.7 BUN/Creatinine Ratio 22 (6-20) Glucose Level 268 mg/dL (70-99) Calcium Level 8.8 mg/dL (8.5-10.1) Total Bilirubin 0.4 mg/dL (0.2-1.0) Aspartate Amino Transf (AST/SGOT) 25 U/L (15-37) Alanine Aminotransferase (ALT/SGPT) 30 U/L (14-59) Alkaline Phosphatase 69 U/L (46-116) Troponin I Quantitative < 0.017 ng/mL (0.000-0.055) < 0.017 ng/mL (0.000-0.055) < 0.017 ng/mL (0.000-0.055) VX-Wse-T-Type Natriuretic Peptide 213 pg/mL (0-124) Total Protein 7.0 g/dL (6.4-8.2) Albumin 3.3 g/dL (3.4-5.0) Albumin/Globulin Ratio 0.9 (1.0-1.7) Triglycerides Level 521 mg/dL (0-150) Cholesterol Level 123 mg/dL (0-200) LDL Cholesterol, Calculated mg/dL (0-100) VLDL Cholesterol, Calculated mg/dL (0-40) Non-HDL Cholesterol Calculated 105 mg/dL (0-129) HDL Cholesterol 18 mg/dL (40-60) Cholesterol/HDL Ratio 6.8 Thyroid Stimulating Hormone (TSH) 3.853 uIU/mL (0.358-3.74) Glucose (Fingerstick) 322 mg/dL (70-99) VTE Prophylaxis Ordered VTE Prophylaxis Devices: Yes VTE Pharmacological Prophylaxi: Yes Assessment/Plan Assessment/Plan Chest pain noncardiac Hypertension, chronic stable Diabetes type 2 chronic stable Obesity BMI 39 HYPO thyroidism on Synthroid Plan Observation status, echo I have reconciled home meds If echo normal home today Dw cards CHINEDU EDMONDS MD Dec 25, 2018 10:45
--- NOTE | 2018-12-25 10:45 | PDOC2 ---
HAMILTON GARCIA JAILER/TRAINING OFFICER 12/25/18 1045: CARDIAC CONSULT DATE OF CONSULT Date of Consult DATE: 12/25/18 TIME: 10:23 REASON FOR CONSULT Reason for Consult: Chest pain REFERRING PHYSICIAN Referring Physician: Emily SOURCE Source: Chart review, Patient HISTORY OF PRESENT ILLNESS HISTORY OF PRESENT ILLNESS This is a pleasant 43 yo male admitted for complains of chest pain. She missed her meds last night as she went to [facility] and forgot about it. Reports that she was awake and started having midchest stabbing pain with some nausea lasting about 2-3 minutes. No SOA. No palpitations and his chest pain is also reproducible with palpation. Also her BP was high last night as her BP meds she forgot to take it . Reports no falls, injury or any recent MVA. She has been taking daily ibuprofen particularly at night fo the generalized pain. No hx of CAD, VTE, or arrhythmias. She has chrionic pain starting her mechanical fall at work 6 months ago. PAST MEDICAL HISTORY Cardiovascular: HTN, Hyperlipidemia CENTRAL NERVOUS SYSTEM: Other (No pertinent history) GI: GERD Heme/Onc: No pertinent hx Hepatobiliary: No pertinent hx Psych: Bipolar Musculoskeletal: Osteoarthritis Rheumatologic: No pertinent hx Infectious disease: No pertinent hx ENT: No pertinent hx Renal/: No pertinent hx Endocrine: Diabetes (2), Hypothyroidism Dermatology: No pertinent hx PAST SURGICAL HISTORY Past Surgical History: Tubal Ligation FAMILY HISTORY Family History: Heart Disease SOCIAL HISTORY Smoke: Quit ALCOHOL: none Drugs: None Lives: with Family CURRENT MEDICATIONS CURRENT MEDICATIONS Current Medications Medications (Trade) Dose Ordered Sig/Live Route PRN Reason Start Time Stop Time Status Last Admin Dose Admin Aspirin (Children'S Aspirin) 324 mg 1X ONCE PO 12/25/18 02:15 12/25/18 02:16 DC 12/25/18 02:19 Ondansetron HCl (Zofran Odt) 4 mg 1X ONCE PO 12/25/18 02:15 12/25/18 02:16 DC 12/25/18 02:19 ALLERGIES ALLERGIES: Coded Allergies: LEOLA Inhibitors (Verified Allergy, Severe, swelling, 10/15/16) Penicillins (Unverified Allergy, Severe, swelling, hives, throat closes, 04/02/14) trandolapril (Unverified Allergy, Severe, anaphylaxis, 04/02/14) verapamil (Unverified Allergy, Severe, anaphylaxis, 04/02/14) lamotrigine (Unverified Allergy, Intermediate, 10/15/16) codeine (Unverified Adverse Reaction, Intermediate, severe headache, 11/19/16) ROS Review of System 14 point ROS evaluated with pertinent positives noted per HPI PHYSICAL EXAM General: Alert, Oriented X3, Cooperative, No acute distress HEENT: Atraumatic, Mucous membr. moist/pink, Other (periodontal disease/halitos is) Lungs: Clear to auscultation, Normal air movement Heart: Regular rate (SR), Normal S1, Normal S2, No murmurs Abdomen: Soft, No tenderness Extremities: No cyanosis, No edema Skin: No breakdown, No significant lesion Neuro: Normal speech, Sensation intact Psych/Mental Status: Mental status NL, Mood NL MUSCULOSKELETAL: Osteoarthritic changes both hands VITALS VITALS Vital Signs Date Time Temp Pulse Resp B/P (MAP) Pulse Ox O2 Delivery O2 Flow Rate FiO2 12/25/18 07:00 97.5 66 16 119/55 (76) 96 Room Air 97.5 LABS Lab: Laboratory Tests Test 12/25/18 02:10 12/25/18 05:54 12/25/18 07:32 White Blood Count 9.6 x10^3/uL (4.0-11.0) Red Blood Count 4.40 x10^6/uL (3.50-5.40) Hemoglobin 13.0 g/dL (12.0-15.5) Hematocrit 37.5 % (36.0-47.0) Mean Corpuscular Volume 85 fL (79-100) Mean Corpuscular Hemoglobin 30 pg (25-35) Mean Corpuscular Hemoglobin Concent 35 g/dL (31-37) Red Cell Distribution Width 13.9 % (11.5-14.5) Platelet Count 185 x10^3/uL (140-400) Neutrophils (%) (Auto) 65 % (31-73) Lymphocytes (%) (Auto) 21 % (24-48) Monocytes (%) (Auto) 7 % (0-9) Eosinophils (%) (Auto) 5 % (0-3) Basophils (%) (Auto) 1 % (0-3) Neutrophils # (Auto) 6.3 x10^3uL (1.8-7.7) Lymphocytes # (Auto) 2.1 x10^3/uL (1.0-4.8) Monocytes # (Auto) 0.7 x10^3/uL (0.0-1.1) Eosinophils # (Auto) 0.5 x10^3/uL (0.0-0.7) Basophils # (Auto) 0.1 x10^3/uL (0.0-0.2) D-Dimer (Cindy) 0.29 ug/mlFEU (0.00-0.50) Sodium Level 135 mmol/L (136-145) Potassium Level 3.7 mmol/L (3.5-5.1) Chloride Level 98 mmol/L (98-107) Carbon Dioxide Level 26 mmol/L (21-32) Anion Gap 11 (6-14) Blood Urea Nitrogen 33 mg/dL (7-20) Creatinine 1.5 mg/dL (0.6-1.0) Estimated GFR (Cockcroft-Gault) 37.7 BUN/Creatinine Ratio 22 (6-20) Glucose Level 268 mg/dL (70-99) Calcium Level 8.8 mg/dL (8.5-10.1) Total Bilirubin 0.4 mg/dL (0.2-1.0) Aspartate Amino Transf (AST/SGOT) 25 U/L (15-37) Alanine Aminotransferase (ALT/SGPT) 30 U/L (14-59) Alkaline Phosphatase 69 U/L (46-116) Troponin I Quantitative < 0.017 ng/mL (0.000-0.055) < 0.017 ng/mL (0.000-0.055) DY-Pgd-Q-Type Natriuretic Peptide 213 pg/mL (0-124) Total Protein 7.0 g/dL (6.4-8.2) Albumin 3.3 g/dL (3.4-5.0) Albumin/Globulin Ratio 0.9 (1.0-1.7) Triglycerides Level 521 mg/dL (0-150) Cholesterol Level 123 mg/dL (0-200) LDL Cholesterol, Calculated mg/dL (0-100) VLDL Cholesterol, Calculated mg/dL (0-40) Non-HDL Cholesterol Calculated 105 mg/dL (0-129) HDL Cholesterol 18 mg/dL (40-60) Cholesterol/HDL Ratio 6.8 Thyroid Stimulating Hormone (TSH) 3.853 uIU/mL (0.358-3.74) Glucose (Fingerstick) 322 mg/dL (70-99) ASSESSMENT/PLAN ASSESSMENT/PLAN 1. Atypical chest pain: suspect MSK but gastritis part of differential with chronic NSAID 2. Hypertriglyceridemia 3. HTN urgency: due to missed meds last night otherwise compliant 4. Hypothyroidism 5. DM2 6. Morbid obesity: has gained 20 pounds in the last 6 months 7. Periodontal disease with significant halitosis 8. Chronic generalized pain 9. Suspect CKD3 Recommendations 1. TSH, TTE. Check CK and if OK then may intensify statin. 2. Start pepcid or PPI with chronic NSIAD use. Discussed alternative with CKD 3. Restart home BP meds 4. Discussed lifestyle modification. unable to exercise due to chronic pain. 5. Dietitian consult 6. Anticiapte DC this afternoon. BRYAN OROZCO MD 12/25/18 1648: CARDIAC CONSULT ASSESSMENT/PLAN ASSESSMENT/PLAN Patient seen and examined. Agree with above nurse practitioner note. 43-year-old woman with multiple risk factors presenting with atypical chest pain. EKG, troponin and echocardiogram are grossly unremarkable. Okay to discharge from a cardiac standpoint and plan for outpatient stress test due to significant diabetic history. HAMILTON GARCIA APRN Dec 25, 2018 10:45 BRYAN OROZCO MD Dec 25, 2018 16:48
--- NOTE | 2018-12-25 10:48 | PDOC3 ---
Discharge Summary Visit Information Date of Admission: Dec 23, 2018 Date of Discharge: Dec 25, 2018 Admitting Diagnosis Comment: cheSt pain noncardiac Obesity, BMI 39 Hypertension, diabetes type 2- chronci stable Hypothyroidism - stable Brief Hospital Course Allergies Allergies Coded Allergies Type Severity Reaction Last Updated Verified LEOLA Inhibitors Allergy Severe swelling 10/15/16 Yes Penicillins Allergy Severe swelling, hives, throat closes 04/02/14 No trandolapril Allergy Severe anaphylaxis 04/02/14 No verapamil Allergy Severe anaphylaxis 04/02/14 No lamotrigine Allergy Intermediate 10/15/16 No codeine Adverse Reaction Intermediate severe headache 11/19/16 No Vital Signs Vital Signs Date Time Temp Pulse Resp B/P (MAP) Pulse Ox O2 Delivery O2 Flow Rate FiO2 12/25/18 07:00 97.5 66 16 119/55 (76) 96 Room Air 97.5 Lab Results Laboratory Tests Test 12/25/18 02:10 12/25/18 05:54 12/25/18 07:32 12/25/18 09:38 White Blood Count 9.6 x10^3/uL (4.0-11.0) Red Blood Count 4.40 x10^6/uL (3.50-5.40) Hemoglobin 13.0 g/dL (12.0-15.5) Hematocrit 37.5 % (36.0-47.0) Mean Corpuscular Volume 85 fL (79-100) Mean Corpuscular Hemoglobin 30 pg (25-35) Mean Corpuscular Hemoglobin Concent 35 g/dL (31-37) Red Cell Distribution Width 13.9 % (11.5-14.5) Platelet Count 185 x10^3/uL (140-400) Neutrophils (%) (Auto) 65 % (31-73) Lymphocytes (%) (Auto) 21 % (24-48) Monocytes (%) (Auto) 7 % (0-9) Eosinophils (%) (Auto) 5 % (0-3) Basophils (%) (Auto) 1 % (0-3) Neutrophils # (Auto) 6.3 x10^3uL (1.8-7.7) Lymphocytes # (Auto) 2.1 x10^3/uL (1.0-4.8) Monocytes # (Auto) 0.7 x10^3/uL (0.0-1.1) Eosinophils # (Auto) 0.5 x10^3/uL (0.0-0.7) Basophils # (Auto) 0.1 x10^3/uL (0.0-0.2) D-Dimer (Cindy) 0.29 ug/mlFEU (0.00-0.50) Sodium Level 135 mmol/L (136-145) Potassium Level 3.7 mmol/L (3.5-5.1) Chloride Level 98 mmol/L (98-107) Carbon Dioxide Level 26 mmol/L (21-32) Anion Gap 11 (6-14) Blood Urea Nitrogen 33 mg/dL (7-20) Creatinine 1.5 mg/dL (0.6-1.0) Estimated GFR (Cockcroft-Gault) 37.7 BUN/Creatinine Ratio 22 (6-20) Glucose Level 268 mg/dL (70-99) Calcium Level 8.8 mg/dL (8.5-10.1) Total Bilirubin 0.4 mg/dL (0.2-1.0) Aspartate Amino Transf (AST/SGOT) 25 U/L (15-37) Alanine Aminotransferase (ALT/SGPT) 30 U/L (14-59) Alkaline Phosphatase 69 U/L (46-116) Troponin I Quantitative < 0.017 ng/mL (0.000-0.055) < 0.017 ng/mL (0.000-0.055) < 0.017 ng/mL (0.000-0.055) HV-Kms-C-Type Natriuretic Peptide 213 pg/mL (0-124) Total Protein 7.0 g/dL (6.4-8.2) Albumin 3.3 g/dL (3.4-5.0) Albumin/Globulin Ratio 0.9 (1.0-1.7) Triglycerides Level 521 mg/dL (0-150) Cholesterol Level 123 mg/dL (0-200) LDL Cholesterol, Calculated mg/dL (0-100) VLDL Cholesterol, Calculated mg/dL (0-40) Non-HDL Cholesterol Calculated 105 mg/dL (0-129) HDL Cholesterol 18 mg/dL (40-60) Cholesterol/HDL Ratio 6.8 Thyroid Stimulating Hormone (TSH) 3.853 uIU/mL (0.358-3.74) Glucose (Fingerstick) 322 mg/dL (70-99) Laboratory Tests Test 12/25/18 02:10 12/25/18 05:54 12/25/18 07:32 12/25/18 09:38 White Blood Count 9.6 x10^3/uL (4.0-11.0) Red Blood Count 4.40 x10^6/uL (3.50-5.40) Hemoglobin 13.0 g/dL (12.0-15.5) Hematocrit 37.5 % (36.0-47.0) Mean Corpuscular Volume 85 fL (79-100) Mean Corpuscular Hemoglobin 30 pg (25-35) Mean Corpuscular Hemoglobin Concent 35 g/dL (31-37) Red Cell Distribution Width 13.9 % (11.5-14.5) Platelet Count 185 x10^3/uL (140-400) Neutrophils (%) (Auto) 65 % (31-73) Lymphocytes (%) (Auto) 21 % (24-48) Monocytes (%) (Auto) 7 % (0-9) Eosinophils (%) (Auto) 5 % (0-3) Basophils (%) (Auto) 1 % (0-3) Neutrophils # (Auto) 6.3 x10^3uL (1.8-7.7) Lymphocytes # (Auto) 2.1 x10^3/uL (1.0-4.8) Monocytes # (Auto) 0.7 x10^3/uL (0.0-1.1) Eosinophils # (Auto) 0.5 x10^3/uL (0.0-0.7) Basophils # (Auto) 0.1 x10^3/uL (0.0-0.2) D-Dimer (Cindy) 0.29 ug/mlFEU (0.00-0.50) Sodium Level 135 mmol/L (136-145) Potassium Level 3.7 mmol/L (3.5-5.1) Chloride Level 98 mmol/L (98-107) Carbon Dioxide Level 26 mmol/L (21-32) Anion Gap 11 (6-14) Blood Urea Nitrogen 33 mg/dL (7-20) Creatinine 1.5 mg/dL (0.6-1.0) Estimated GFR (Cockcroft-Gault) 37.7 BUN/Creatinine Ratio 22 (6-20) Glucose Level 268 mg/dL (70-99) Calcium Level 8.8 mg/dL (8.5-10.1) Total Bilirubin 0.4 mg/dL (0.2-1.0) Aspartate Amino Transf (AST/SGOT) 25 U/L (15-37) Alanine Aminotransferase (ALT/SGPT) 30 U/L (14-59) Alkaline Phosphatase 69 U/L (46-116) Troponin I Quantitative < 0.017 ng/mL (0.000-0.055) < 0.017 ng/mL (0.000-0.055) < 0.017 ng/mL (0.000-0.055) XK-Lvx-M-Type Natriuretic Peptide 213 pg/mL (0-124) Total Protein 7.0 g/dL (6.4-8.2) Albumin 3.3 g/dL (3.4-5.0) Albumin/Globulin Ratio 0.9 (1.0-1.7) Triglycerides Level 521 mg/dL (0-150) Cholesterol Level 123 mg/dL (0-200) LDL Cholesterol, Calculated mg/dL (0-100) VLDL Cholesterol, Calculated mg/dL (0-40) Non-HDL Cholesterol Calculated 105 mg/dL (0-129) HDL Cholesterol 18 mg/dL (40-60) Cholesterol/HDL Ratio 6.8 Thyroid Stimulating Hormone (TSH) 3.853 uIU/mL (0.358-3.74) Glucose (Fingerstick) 322 mg/dL (70-99) Brief Hospital Course Ms. Cedeno is a 43 old [sex] who presented with [ ] 43-year-old white female, obese BMI 39, chest pain right-sided, intermittent lasted one and half hours. Noncardiac based on her clinical history. No identifiable precip or alleviating factor. No personal history of CAD, no premature history of CAD in the family. Labs and EKG reassuring. No diaphoresis but she claims some dizzy and SOA during the CP. TSH is 3. Also diabetic and hypertensive on medications. Discussed with cardiology, echocardiogram, okay for diet. If Echo okay, could go home later Discharge Information Condition at Discharge: Improved, Stable Disposition/Orders: D/C to Home Scheduled Atorvastatin Calcium (Atorvastatin Calcium) 10 Mg Tablet, 10 MG PO DAILY for FOR CHOLESTEROL, #30 Ref 0 (Reported) Entered as Reported by: Bill Fontanez on 12/25/18536 Last Taken: UNKNOWN on Unknown Date & Time Last Action: Continued on 12/25/18918 by CHINEDU EDMONDS Gabapentin (Gabapentin) 600 Mg Tablet, 900 MG PO TID for NEUROGENIC PAIN, (Reported) Entered as Reported by: Bill Fontanez on 12/25/18536 Last Taken: UNKNOWN on Unknown Date & Time Last Action: Converted on 12/25/18918 by CHINEDU EDMONDS Hydralazine Hcl (Hydralazine Hcl) 10 Mg Tablet, 1 TAB PO TID for htn, #270 Ref 3 (Reported) Entered as Reported by: Bill Fontanez on 12/25/18536 Last Taken: UNKNOWN on Unknown Date & Time Last Action: Converted on 12/25/18918 by CHINEDU EDMONDS Hydrochlorothiazide (Hydrochlorothiazide Tablet) 50 Mg Tablet, 50 MG PO DAILY for DIURETIC, Ref 0 (Reported) Entered as Reported by: Bill Fontanez on 12/25/18536 Last Taken: UNKNOWN on Unknown Date & Time Last Action: Converted on 12/25/18918 by CHINEDU EDMONDS Insulin Lispro (Humalog) 100 Unit/1 Ml Vial, 25 UNIT SQ TIDAC for dm, (Reported) Entered as Reported by: Bill Fontanez on 12/25/18536 Last Taken: UNKNOWN on Unknown Date & Time Last Action: Continued on 12/25/18918 by CHINEDU EDMONDS Levothyroxine Sodium (Levothyroxine Sodium) 25 Mcg Tablet, 25 MCG PO DAILYAC for THYROID SUPPLEMENT, #30 Ref 0 (Reported) Entered as Reported by: Bill Fontanez on 12/25/18536 Last Taken: UNKNOWN on Unknown Date & Time Last Action: Converted on 12/25/18918 by CHINEDU EDMONDS Losartan Potassium (Losartan Potassium) 100 Mg Tablet, 100 MG PO DAILY for HYPERTENSION, (Reported) Entered as Reported by: Bill Fontanez on 12/25/18536 Last Taken: UNKNOWN on Unknown Date & Time Last Action: Converted on 12/25/18918 by CHINEDU EDMONDS Scheduled PRN Clonidine Hcl (Clonidine Hcl) 0.1 Mg Tablet, 0.1 MG PO TID PRN PRN for htn, (Reported) Entered as Reported by: Bill Fontanez on 12/25/18536 Last Taken: UNKNOWN on Unknown Date & Time Last Action: Continued on 12/25/18918 by CHINEDU EDMONDS Insulin Glargine,Hum.rec.anlog (Lantus Solostar) 100 Unit/1 Ml Insuln.pen, 40 UNIT SQ QHS PRN for DRY MOUTH, #15 Ref 3 (Reported) Entered as Reported by: Bill Fontanez on 12/25/18536 Last Taken: UNKNOWN on Unknown Date & Time Last Action: Continued on 12/25/18918 by CHINEDU GUARDADO MD Dec 25, 2018 10:48
[2018-12-25 11:00] VITALS: BP 133/77
--- NOTE | 2018-12-25 11:05 | NUR ---
SS following for discharge planning. SS reviewed pt chart. Discharge order on the chart. Pt is from home and is currently on room air. Pt is self pay pt. [facility] following for self pay status.
[2018-12-25] MEDS ORDERED: FAMOTIDINE 20 MG TABLET. PO ONE (11:11)
--- NOTE | 2018-12-25 12:57 | CARD ---
MR#: [id number] Date of Study: 12/25/2018 Ordering Physician: HAMILTON GARCIA, Referring Physician: CHINEDU EDMONDS Tech: Kaitlynn Gilmore [place] APPROVED REPORT EXAM: Two-dimensional and M-mode echocardiogram with Doppler and color Doppler. Other Information Quality : AverageHR: 66bpm Rhythm : NSR INDICATION Chest Pain 2D DIMENSIONS RVDd2.9 (2.9-3.5cm)Left Atrium(2D)3.4 (1.6-4.0cm) IVSd1.3 (0.7-1.1cm)Aortic Root(2D)3.0 (2.0-3.7cm) LVDd4.3 (3.9-5.9cm)LVOT Diameter1.9 (1.8-2.4cm) PWd1.0 (0.7-1.1cm)LVDs2.8 (2.5-4.0cm) FS (%) 35.8 %SV55.9 ml LVEF(%)65.6 (>50%) M-Mode DIMENSIONS Left Atrium(MM)3.47 (2.5-4.0cm)Aortic Root3.40 (2.2-3.7cm) Aortic Valve AoV Peak Earl.126.7cm/sAoV VTI27.6cm AO Peak GR.6.4mmHgLVOT Peak Earl.91.7cm/s AO Mean GR.4mmHgAVA (VMAX)2.04cm2 MC (VTI)2.10cm2 Mitral Valve MV E Ppvscizy84.8cm/sMV DECEL CAPR904wt MV A Bjumacqn78.8cm/sE/A Ratio0.9 Pulmonary Valve PV Peak Gjbeyjop71.1cm/s Pulmonary Vein S1 Yfjjixod08.9cm/sD2 Uhffagkb39.8cm/s PVa [id number] LEFT VENTRICLE The left ventricle is normal size. There is mild concentric left ventricular hypertrophy. The left ve ntricular systolic function is normal. The Ejection Fraction is 60-65%. There is normal LV segmental wall motion. Transmitral Doppler flow pattern is Grade I-abnormal relaxation pattern. RIGHT VENTRICLE The right ventricle is normal size. There is normal right ventricular wall thickness. The right ventr icular systolic function is normal. ATRIA The left atrium size is normal. The right atrium size is normal. The interatrial septum is intact wit h no evidence for an atrial septal defect or patent foramen ovale as noted on 2-D or Doppler imaging. AORTIC VALVE The aortic valve is thickened but opens well. The aortic valve is trileaflet. Doppler and Color Flow revealed no significant aortic regurgitation. There is no significant aortic valvular stenosis. MITRAL VALVE The mitral valve is normal in structure and function. There is no evidence of mitral valve prolapse. There is no mitral valve stenosis. Doppler and Color-flow revealed trace to mild mitral regurgitation . TRICUSPID VALVE The tricuspid valve is normal in structure and function. Doppler and Color Flow revealed no tricuspid valve regurgitation noted. There is no tricuspid valve prolapse or vegetation. There is no tricuspid valve stenosis. PULMONIC VALVE The pulmonary valve is normal in structure and function. Doppler and Color Flow revealed no pulmonic valvular regurgitation. There is no pulmonic valvular stenosis. GREAT VESSELS The aortic root is normal in size. The ascending aorta is normal in size. The IVC is normal in size a nd collapses >50% with inspiration. PERICARDIAL EFFUSION There is no evidence of significant pericardial effusion. Critical Notification Critical Value: No <Conclusion> The left ventricular systolic function is normal. The Ejection Fraction is 60-65%. There is normal LV segmental wall motion. Transmitral Doppler flow pattern is Grade I-abnormal relaxation pattern. Doppler and Color-flow revealed trace to mild mitral regurgitation. There is no evidence of significant pericardial effusion. Signed by : Tien Encarnacion, Electronically Approved : 12/25/2018 12:57:14
[2018-12-25 15:00] VITALS: BP 119/63
--- NOTE | 2018-12-25 19:47 | NUR ---
Discharge Note: [facility] Discharge instructions and discharge home medications reviewed with Patient and a copy given. All questions have been answered and understanding verbalized. The following instructions and handouts were given: follow up mpi, medications, blood pressure checking before medications bid. Discontinued lines and drains: IV removed, no lines present. Patient discharged to to home. left by wheelchair with by private vehicle.
[2018-12-25] MEDS ORDERED: FAMOTIDINE 20 MG TABLET. PO SCH (21:00)
[2018-12-25] MEDS ORDERED: INSULIN GLARGINE 300 UNITS/3 ML INSULN.PEN. SQ SCH (21:00)
[2018-12-25] MEDS ORDERED: ATORVASTATIN CALCIUM 10 MG TABLET. PO SCH (21:00)
[2018-12-25] MEDS ORDERED: ATORVASTATIN CALCIUM 40 MG TABLET. PO SCH (21:00)
[2018-12-26 09:13] LABS: HEMOGLOBIN A1C 9.6 % (4.8-5.6)
== END 2018-12-25 16:20 | disposition home or self-care (01) | DRG 313 ==
LOC: ER 01:39 → 2 SOUTH 02:30
PROVIDERS: ADMIT Internal Medicine; ATTEND Internal Medicine
DX: R07.89 Other chest pain (principal); E03.9 Hypothyroidism, unspecified; E11.9 Type 2 diabetes mellitus without complications; E66.01 Morbid (severe) obesity due to excess calories; Z68.39 Body mass index [BMI] 39.0-39.9, adult; E78.1 Pure hyperglyceridemia; E78.5 Hyperlipidemia, unspecified; F31.9 Bipolar disorder, unspecified; G40.909 Epilepsy, unspecified, not intractable, without status epilepticus; G89.29 Other chronic pain; I10 Essential (primary) hypertension; F41.9 Anxiety disorder, unspecified; M19.90 Unspecified osteoarthritis, unspecified site; I16.0 Hypertensive urgency; K05.6 Periodontal disease, unspecified; K21.9 Gastro-esophageal reflux disease without esophagitis; Z79.4 Long term (current) use of insulin; Z82.49 Family history of ischemic heart disease and other diseases of the circulatory system; Z98.51 Tubal ligation status; Z88.0 Allergy status to penicillin; Z88.8 Allergy status to other drugs, medicaments and biological substances
CPT/HCPCS: 36415; 71045; 80053; 80061; 82550; 82962; 83036; 83880; 84443; 84484; 85025; 85379; 93005; 93306; J1815; Q0162; 99285-25

== ENCOUNTER 2020-02-25 16:55 | Emergency (ER) | payer SELFPAY ==
[~2020-02-25] VITALS: Ht 157.5 cm; Wt 93.0 kg
[~2020-02-25 16:55] MED LIST changes: +ATOR10TA60 PO; +CLON0.1T PO; +GABA600T7 PO; +HYDR-2867 PO; +HYDR50TA6 PO; +INSU100I13 SQ; +INSU100V6 SQ; +LEVO25TA4 PO; +LOSA100T14 PO
[2020-02-25 17:00] VITALS: BP 200/94
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
[2020-02-25] MEDS ORDERED: HYDR30CR74 TP (17:31)
[2020-02-25] MEDS ORDERED: HYDR50CA PO (17:31)
== END 2020-02-25 17:44 | disposition home or self-care (01) ==
LOC: ER 16:55
DX: L50.0 Allergic urticaria (principal); R21 Rash and other nonspecific skin eruption; T45.0X5A Adverse effect of antiallergic and antiemetic drugs, initial encounter; R19.7 Diarrhea, unspecified; I10 Essential (primary) hypertension; F12.90 Cannabis use, unspecified, uncomplicated; E11.40 Type 2 diabetes mellitus with diabetic neuropathy, unspecified; E03.9 Hypothyroidism, unspecified; G40.909 Epilepsy, unspecified, not intractable, without status epilepticus; Z98.51 Tubal ligation status; Z98.890 Other specified postprocedural states; Z88.6 Allergy status to analgesic agent; Y92.89 Other specified places as the place of occurrence of the external cause
CPT/HCPCS: 99283

== ENCOUNTER → 2020-03-01 | Outpatient (CLI) | payer OTHER ==
[2020-02-25 17:00] VITALS: BP 200/94
[~2020-03-01] MED LIST changes: +HYDR30CR74 TP; +HYDR50CA PO
[2020-03-01 13:47] LABS: BASO # 0.1 x10^3/uL (0.0-0.2); BASO % 1 % (0-3); EOS # 0.5 x10^3/uL (0.0-0.7); EOS % 4 % (0-3); HEMATOCRIT 39.5 % (36.0-47.0); HEMOGLOBIN 13.2 g/dL (12.0-15.5); LYMPH # 1.6 x10^3/uL (1.0-4.8); LYMPH % 14 % (24-48); MEAN CORPUSCULAR HEMOGLOBIN 28 pg (25-35); MEAN CORPUSCULAR HGB CONC 33 g/dL (31-37); MEAN CORPUSCULAR VOLUME 85 fL (79-100); MONO # 0.6 x10^3/uL (0.0-1.1); MONO % 5 % (0-9); NEUT # 8.8 x10^3/uL (1.8-7.7); NEUT % 76 % (31-73); PLATELET COUNT 174 x10^3/uL (140-400); RED BLOOD COUNT 4.66 x10^6/uL (3.50-5.40); RED CELL DISTRIBUTION WIDTH 13.7 % (11.5-14.5); WHITE BLOOD COUNT 11.7 x10^3/uL (4.0-11.0)
[2020-03-01 14:03] LABS: ALBUMIN 3.1 g/dL (3.4-5.0); ALBUMIN/GLOBULIN RATIO 0.7 (1.0-1.7); CALCIUM 9.2 mg/dL (8.5-10.1); CREATININE 1.6 mg/dL (0.6-1.0); GFR 34.7; POTASSIUM 4.4 mmol/L (3.5-5.1); TOTAL BILIRUBIN 0.3 mg/dL (0.2-1.0); TOTAL PROTEIN 7.4 g/dL (6.4-8.2)
--- NOTE | 2020-03-02 08:20 | RAD ---
EXAM: Lumbar spine, 3 views. HISTORY: Pain. COMPARISON: None. FINDINGS: 3 views of the lumbar spine are obtained. There is a transitional lumbosacral segment. This is considered a partially lumbarized S1 segment with rudimentary S1-S2 disc for this dictation. There is mild multilevel endplate remodeling. There is no fracture or listhesis. IMPRESSION: 1. Transitional lumbosacral segment, a normal variant. 2. Mild multilevel endplate remodeling. 3. No acute osseous finding. Electronically signed by: Azra Jhaveri MD (03/02/2020 8:18 AM) [facility]
--- NOTE | 2020-03-02 08:23 | RAD ---
EXAM: Bilateral knees, 2 views. HISTORY: Pain. COMPARISON: None. FINDINGS: 2 views of both knees are obtained. There is no fracture, dislocation or subluxation. No joint effusion is seen. IMPRESSION: No acute osseous finding. Electronically signed by: Azra Jhaveri MD (03/02/2020 8:20 AM) [facility]
== END | disposition home or self-care (01) ==
LOC: RAD 13:19
PROVIDERS: ATTEND Anesthesiology Pain Medicine
DX: I12.9 Hypertensive chronic kidney disease with stage 1 through stage 4 chronic kidney disease, or unspecified chronic kidney disease (principal); E11.22 Type 2 diabetes mellitus with diabetic chronic kidney disease; N18.3 Chronic kidney disease, stage 3 (moderate); E78.00 Pure hypercholesterolemia, unspecified; E03.9 Hypothyroidism, unspecified; F32.9 Major depressive disorder, single episode, unspecified; M50.30 Other cervical disc degeneration, unspecified cervical region; Q76.49 Other congenital malformations of spine, not associated with scoliosis; M25.561 Pain in right knee; M25.562 Pain in left knee; M54.5 Low back pain
CPT/HCPCS: 36415; 72100; 73560; 80053; 85025